=== PATIENT | female | born 2000 | race American Indian/Alaskan Native ===

== ENCOUNTER 2019-04-10 01:17 | Emergency (ER) | payer SELFPAY ==
[~2019-04-10] VITALS: Ht 170.2 cm; Wt 77.3 kg
[2019-04-10 01:37] VITALS: BP 136/92
== END 2019-04-10 01:58 ==
LOC: ER 01:17
DX: F10.129 Alcohol abuse with intoxication, unspecified (principal); V87.7XXA Person injured in collision between other specified motor vehicles (traffic), initial encounter; Y93.89 Activity, other specified; Y92.488 Other paved roadways as the place of occurrence of the external cause; Y99.8 Other external cause status; Y90.9 Presence of alcohol in blood, level not specified
CPT/HCPCS: 99283

== ENCOUNTER 2019-04-19 04:09 | Emergency (ER) | payer SELFPAY ==
[~2019-04-19] VITALS: Ht 170.2 cm; Wt 76.4 kg
[2019-04-19] MEDS ORDERED: NO HOME MEDS (05:07)
[2019-04-19 05:29] LABS: BASOPHILS # (AUTO) 0.1 X10'3 (0-0.2); EOSINOPHILS # (AUTO) 0.1 X10'3 (0-0.9); MEAN CORPUSCULAR HGB CONC 33.8 g/dL (33.0-36.5); MONOCYTES # (AUTO) 0.3 X10'3 (0-0.9); NEUTROPHILS # (AUTO) 5.8 X10'3 (1.8-7.7)
[2019-04-19 05:34] LABS: BASOPHILS % (AUTO) 1.1 % (0-1); EOSINOPHILS % (AUTO) 0.6 % (0-6); HEMATOCRIT 42.1 % (35.0-45.0); HEMOGLOBIN 14.2 g/dl (12.0-16.0); LYMPHOCYTES # (AUTO) 2.5 X10'3 (1.1-4.8); LYMPHOCYTES % (AUTO) 28.8 % (21-51); MEAN CORPUSCULAR HEMOGLOBIN 28.4 PG (27.0-31.0); MEAN PLATELET VOLUME 7.9 FL (7.4-10.4); NEUTROPHILS % (AUTO) 66.5 % (42-75); PLATELET COUNT 408 X10'3 (140-440); RED BLOOD COUNT 5.02 X10'6 (4.20-5.60); RED CELL DISTRIBUTION WIDTH 14.3 % (11.5-14.5); WHITE BLOOD COUNT 8.7 X10'3 (4.5-11.0)
[2019-04-19 05:45] LABS: ANION GAP 14 (8-16); BLOOD UREA NITROGEN 5 MG/DL (7-18); BUN/CREATININE RATIO 6.8 (6.6-38.0); CHLORIDE 109 MMOL/L (99-107); CREATININE 0.73 MG/DL (0.40-0.90); GLUCOSE 122 MG/DL (70-104); POTASSIUM 3.7 MMOL/L (3.5-5.1); SODIUM 148 MMOL/L (135-145); TOTAL CARBON DIOXIDE 25.4 MMOL/L (24-32)
[2019-04-19 05:46] LABS: ALANINE AMINOTRANSFERASE 32 U/L (12-78); ALBUMIN/GLOBULIN RATIO 0.9 (1.1-1.5); ALKALINE PHOSPHATASE 100 IU/L (46-116); ASPARTATE AMINO TRANSFERASE 24 U/L (10-37); BILIRUBIN,TOTAL 0.2 MG/DL (0.1-1.0); CALCIUM 8.8 MG/DL (8.5-10.1); TOTAL PROTEIN 8.3 G/DL (6.4-8.2); eGFR > 90 ML/MIN
--- NOTE | 2019-04-19 07:00 | NUR ---
Pt denies any SI at this time. States she feels "depressed" seondary to issues at home. Denies trying to jump of "[place]".
--- NOTE | 2019-04-19 08:10 | NUR ---
Pt ambulated to restroom with steady gait. Urine obtained.
[2019-04-19 08:32] LABS: CLARITY,URINE SLIGHTLY CLOUDY (Clear); COLOR,URINE YELLOW (Yellow); GLUCOSE, URINE NEGATIVE (Neg); KETONES,URINE NEGATIVE (Neg); LEUKOCYTE ESTERASE ,URINE NEGATIVE (Neg); NITRITES, URINE NEGATIVE (Neg); OCCULT BLOOD,URINE NEGATIVE (Neg); PROTEIN,URINE NEGATIVE (Neg); UROBILINOGEN,URINE 0.2 E.U/dL (0.2-1.0)
[2019-04-19 08:33] LABS: UA COLLECTION TYPE CLN CATCH MIDSTREAM
[2019-04-19 08:39] LABS: SQUAMOUS EPITHELIAL CELL,UR MODERATE /LPF (FEW)
--- NOTE | 2019-04-19 08:39 | NUR ---
Pt declined breakfast. Sleeping on L side, RR equal and nonlabored.
[2019-04-19 08:40] LABS: BACTERIA,URINE FEW /HPF (Neg); RBC,URINE NONE SEEN /HPF (0-2); WBC,URINE NONE SEEN /HPF (0-4)
[2019-04-19 08:56] LABS: URINE AMPHETAMINE SCREEN POSITIVE (Neg); URINE BARBITUATE SCREEN NEGATIVE (Neg); URINE BENZODIAZEPINES SCREEN NEGATIVE (Neg); URINE CANNABINOID SCREEN NEGATIVE (Neg); URINE COCAINE SCREEN POSITIVE (Neg); URINE METHADONE SCREEN NEGATIVE (Neg); URINE OPIATE SCREEN NEGATIVE (Neg); URINE PHENCYCLIDINE SCREEN NEGATIVE (Neg)
--- NOTE | 2019-04-19 12:21 | NUR ---
Assumed care of pt. Pt resting comfortably on her right side. No s/s of distress.
--- NOTE | 2019-04-19 13:16 | NUR ---
Pt refused her lunch tray and continues to sleep.
--- NOTE | 2019-04-19 14:17 | NUR ---
Pt resting comfortably on her right side. No s/s of distress. Respirations are even and unlabored.
--- NOTE | 2019-04-19 15:07 | NUR ---
mom yaa [phone] called and wanted to talk to the patient but pt is asleep and did not want to wake her. mom said when she wakes up to have pt call mom
--- NOTE | 2019-04-19 15:20 | NUR ---
Pt awake and calling her parents
--- NOTE | 2019-04-19 15:33 | NUR ---
asked pt if she was hungry she said "No"
--- NOTE | 2019-04-19 16:21 | NUR ---
Pt continues to visit with parents amicably
[2019-04-19 17:16] VITALS: BP 132/79
== END 2019-04-19 17:51 | disposition home or self-care (01) ==
LOC: ER 04:09
DX: R45.851 Suicidal ideations (principal); F15.10 Other stimulant abuse, uncomplicated; F17.210 Nicotine dependence, cigarettes, uncomplicated
CPT/HCPCS: 36415; 80053; 80305; 80320; 81001; 84443; 85025; 99285